=== PATIENT | female | born 1970 | race Caucasian/White ===

== ENCOUNTER 2019-09-13 10:18 | Emergency (ER) | payer BC ==
[2019-09-13] MEDS ORDERED: Acetaminophen/oxyCODONE 325-5 MG Tab PO STA (10:47)
--- NOTE | 2019-09-13 10:54 | EDM.PDOC ---
ED HPI GENERAL MEDICAL PROBLEM - General Chief Complaint: Lower Extremity Injury/Pain Stated Complaint: FELL ON DOCK 09/12/19 11.30 Time Seen by Provider: 09/13/19 10:40 Source of Information: Reports: Patient. Denies: Old Records History Limitations: Reports: Other (no old records) - History of Present Illness INITIAL COMMENTS - FREE TEXT/NARRATIVE: 48 yo [place] fell [place] a dock last night injuring her L 5th finger and L thigh. Was able to walk into the house after the injury. Today has swelling and pain to the L ant/lateral thigh so not able to walk. No self tx. No numbness of the calf/leg area. [place]. Onset: Sudden Onset Date: 09/12/19 Duration: Hour(s):, Constant Location: Reports: Upper Extremity, Left, Lower Extremity, Left Quality: Reports: Ache, Pressure Severity: Moderate Improves with: Reports: Rest Worsens with: Reports: Movement Context: Reports: Trauma Associated Symptoms: Reports: No Other Symptoms Treatments CARPENTER ASSISTANT: Reports: Other (see below) (none) - Related Data Allergies Allergy/AdvReac Type Severity Reaction Status Date / Time No Known Allergies Allergy Verified 09/13/19 10:42 Home Meds: Home Meds Norethindrone [Teresa] 1 tab PO DAILY 09/13/19 [History] Past Medical History - Past Surgical History Female Surgical History: Reports: Section Social & Family History - Tobacco Use Smoking Status *Q: Never Smoker Review of Systems - Review of Systems Review Of Systems: See Below Eyes: Reports: No Symptoms Ears: Reports: No Symptoms Nose: Reports: No Symptoms Respiratory: Reports: No Symptoms Cardiovascular: Reports: No Symptoms Musculoskeletal: Reports: Leg Pain (L thigh painful/swelling) Skin: Reports: Bruising (L 5th finger) Neurological: Reports: No Symptoms ED EXAM, GENERAL - Physical Exam Exam: See Below Exam Limited By: No Limitations General Appearance: Alert, WD/WN, No Apparent Distress Extremities: Limited Range of Motion (L 5th finger with ecchymosis, no deformity), Other (L ant/lateral thigh is swollen and tender. Skin is intact. CMS intact below this area. ) Neurological: Alert, Oriented, CN II-XII Intact, Normal Cognition, No Motor/Sensory Deficits ED TRAUMA EXTREMITY PROCEDURES - Additional/Other Procedure(s) Other (Free Text) Procedure(s): Yael taped injured finger to the adjacent finger. Course - Vital Signs Last Recorded V/S: Last Vital Signs Temp 36.9 C 09/13/19 10:50 Pulse 95 09/13/19 10:50 Resp 17 09/13/19 10:50 BP 108/53 L 09/13/19 10:50 Pulse Ox 98 09/13/19 10:50 - Orders/Labs/Meds Orders: Active Orders 24 hr Category Date Time Status Femur Min 2V Lt [CR] Stat Exams 09/13/19 10:47 Ordered Fingers Fifth Digit Lt F4 [CR] Stat Exams 09/13/19 10:47 Ordered Meds: Medications Discontinued Medications Generic Name Dose Route Start Last Admin Trade Name Freq PRN Reason Stop Dose Admin Oxycodone/Acetaminophen 1 tab 09/13/19 10:47 09/13/19 10:54 Percocet 325-5 Mg PO 09/13/19 10:48 1 tab ONETIME STA Administration - Radiology Interpretation Free Text/Narrative:: L 5th finger X-ray-neg L femur X-ray-neg Departure - Departure Time of Disposition: 11:30 Disposition: Home, Self-Care 01 Condition: Fair Clinical Impression: Thigh contusion Qualifiers: Encounter type: initial encounter Laterality: left Qualified Code(s): S70.12XA - Contusion of left thigh, initial encounter Finger sprain Qualifiers: Encounter type: initial encounter Finger: little finger Sprain of finger site: unspecified site Laterality: left Qualified Code(s): S63.617A - Unspecified sprain of left little finger, initial encounter - Discharge Information *PRESCRIPTION DRUG MONITORING PROGRAM REVIEWED*: No *COPY OF PRESCRIPTION DRUG MONITORING REPORT IN PATIENT [facility]: No Instructions: Quadriceps Contusion, [id number] Referrals: PCP,None [Primary Care Provider] - Forms: ED Department Discharge Additional Instructions: Ibuprofen and/or Mcrae Helena as needed for pain relief. Crutch walking with weight bearing as tolerated. Keep your finger yael taped until it feels better. VIRGEN wrap for support on your left thigh. Recheck as needed. Sepsis Event Note (ED) - Focused Exam Vital Signs: Vital Signs Temp Pulse Resp BP Pulse Ox 09/13/19 10:50 36.9 C 95 17 108/53 L 98 09/13/19 10:38 36.9 C 95 17 108/53 L 98 - My Orders Last 24 Hours: My Active Orders 09/13/19 10:47 Femur Min 2V Lt [CR] Stat Fingers Fifth Digit Lt F4 [CR] Stat - Assessment/Plan Last 24 Hours: My Active Orders 09/13/19 10:47 Femur Min 2V Lt [CR] Stat Fingers Fifth Digit Lt F4 [CR] Stat
--- NOTE | 2019-09-14 10:48 | CR ---
Fingers Fifth Digit Lt F4 CLINICAL HISTORY: Injury FINDINGS: No fracture dislocation or osseous lesion seen IMPRESSION: Negative
--- NOTE | 2019-09-14 10:49 | CR ---
Femur Min 2V Lt CLINICAL HISTORY: Injury FINDINGS: There is no acute fracture within the femur. No destructive changes are seen. Impression: Negative
== END 2019-09-13 12:26 | disposition home or self-care (01) ==
LOC: JP.ED 10:18
DX: S63.617A Unspecified sprain of left little finger, initial encounter (principal); S70.12XA Contusion of left thigh, initial encounter; Z98.890 Other specified postprocedural states; W17.89XA Other fall from one level to another, initial encounter
CPT/HCPCS: 73140; 73552; 99283; A9270